=== PATIENT | male | born 1955 | race Caucasian/White ===

== ENCOUNTER 2021-05-12 07:31 | Day surgery (SDC) | payer MEDICARE, OTHER ==
[~2021-05-12 07:31] MED LIST: LACTATED RINGERS 1,000 ML IV ONE; ceFAZolin 2 GM/50 ML 2 GM/50 ML BAG IV ONE
[2021-05-12] MEDS ORDERED: MIDAZOLAM 2 MG/2 ML VIAL ONE (07:54)
[2021-05-12] MEDS ORDERED: fentaNYL 100 MCG/2 ML VIAL ONE (07:55)
[2021-05-12] MEDS ORDERED: ROCURONIUM 50 MG/5 ML VIAL ONE (07:55)
[2021-05-12] MEDS ORDERED: PROPOFOL 200 MG/20 ML VIAL IVP ONE (07:56)
[2021-05-12] MEDS ORDERED: ONDANSETRON 4 MG/2 ML VIAL ONE ×2 (08:07→09:02)
[2021-05-12] MEDS ORDERED: BUPIVACAINE 0.25% PF 30 ML VIAL ONE ×2 (08:08)
--- NOTE | 2021-05-12 08:16 | ANESTHESIA ---
Pre-Anesthesia VS, & Labs - Diagnosis Bilateral inguinal hernias, Umbilical hernia repair - Procedure Laparoscopic Inguinal hernia repair, Umbilical hernia repair Vital Signs: Temp Pulse Resp BP Pulse Ox 36.4 C L 63 16 123/80 100 05/12/21 07:54 05/12/21 07:54 05/12/21 07:54 05/12/21 07:54 05/12/21 07:54 Height: 6 ft 1 in Weight (kg): 67 kg Body Mass Index: 19.5 BMI Classification: Healthy weight - NPO >8 hours - Lab Results Lab results reviewed: Yes Home Medications and Allergies Home Medications: Ambulatory Orders No Known Home Medications 05/07/21 No Known Home Medications 05/07/21 Allergies/Adverse Reactions: Allergies Allergy/AdvReac Type Severity Reaction Status Date / Time No Known Drug Allergies Allergy Verified 05/12/21 08:02 Anes History & Medical History - Anesthetic History Anesthesia Complications: reports: No previous complications Family history of Anesthesia Complications: Denies Family history of Malignant Hyperthermia: Denies - Medical History Cardiovascular: reports: Other Pulmonary: reports: None Gastrointestinal: reports: None Urinary: reports: None Musculoskeletal: reports: Osteoarthritis, Chronic back pain Endocrine/Autoimmune: reports: None Skin: reports: Eczema Exam General: Alert, Oriented x3, Cooperative, No acute distress Dental: WNL Mouth Openin Fingerbreadth Neck Mobility: Normal Mallampati classification: I Respiratory: Lungs clear, Normal breath sounds, No respiratory distress, No accessory muscle use Cardiovascular: Regular rate, Normal S1, Normal S2, No murmurs Plan Anesthesia Type: General Consent for Procedure(s) Verified and Reviewed: Yes Code Status: Attempt Resuscitation ASA classification: 1-Healthy patient Is this case an emergency?: No
[2021-05-12] MEDS ORDERED: BUPIVACAINE 0.25% PF 10 ML VIAL ONE ×2 (08:29→09:13)
[2021-05-12] MEDS ORDERED: LIDOCAINE-MPF 2% 5 ML VIAL ONE (08:35)
[2021-05-12] MEDS ORDERED: DEXAMETHASONE 4 MG/ML VIAL ONE (09:02)
[2021-05-12] MEDS ORDERED: ACETAMINOPHEN 1,000 MG/100 ML 100 ML IV ONE (09:02)
[2021-05-12] MEDS ORDERED: ePHEDrine 50 MG/ML VIAL IVP ONE (09:09)
[2021-05-12] MEDS ORDERED: BUPIVACAINE 0.25% PF 30 ML VIAL SUBQ ONE (09:30)
[2021-05-12] MEDS ORDERED: GLYCOPYRROLATE 1 MG/5 ML VIAL ONE (10:11)
[2021-05-12] MEDS ORDERED: NEOSTIGMINE 1 MG/1 ML 10 ML MDV ONE (10:11)
[2021-05-12] MEDS ORDERED: ePHEDrine 50 MG/ML VIAL IVP PRN (10:59)
[2021-05-12] MEDS ORDERED: HYDROmorphone 0.5 MG/0.5 ML SYRINGE IVP PRN (10:59)
[2021-05-12] MEDS ORDERED: MORPHINE 2 MG/ML CARPUJECT IVP PRN (10:59)
[2021-05-12] MEDS ORDERED: NALOXONE 0.4 MG/ML VIAL IVP PRN (10:59)
[2021-05-12] MEDS ORDERED: ATROPINE ABBOJECT 1 MG/10 ML SYRINGE IVP PRN (10:59)
[2021-05-12] MEDS ORDERED: ONDANSETRON 4 MG/2 ML VIAL IVP PRN ×2 (10:59→11:09)
[2021-05-12] MEDS ORDERED: fentaNYL 100 MCG/2 ML VIAL IVP PRN (10:59)
[2021-05-12] MEDS ORDERED: METOCLOPRAMIDE 10 MG/2 ML VIAL IVP PRN (10:59)
[2021-05-12] MEDS ORDERED: LACTATED RINGERS 1,000 ML IV SCH (11:00)
[2021-05-12] MEDS ORDERED: LACTATED RINGERS 600 ML IV ONE (11:02)
[2021-05-12] MEDS ORDERED: HYDROcod/ACETAM 5/325 MG TABLET PO PRN (11:09)
--- NOTE | 2021-05-12 11:28 | OPERATIVE REPORT ---
Operative Report - General Procedure Date: 05/12/21 Planned Procedure: Laparoscopic bilateral inguinal hernia repair and open umbilical hernia repair Pre-Op Diagnosis: bih and umbilical hernia Procedure Performed: lap bih and umbilical hernia repair with mesh Post Op Diagnosis: same - Procedure Note Primary Surgeon: arron bonner Anesthesia Technique: General ET tube, Local Pathology: none Estimated Blood Loss (mL): 0 Drain/Tube Type: Other (none) Indications: painful bih and umbilical hernia Complications: none - Other Other Information/Narrative: The patient was prepped identified brought to the operating room and placed in supine position. Sequential compression devices were placed. General endotracheal anesthesia was induced. Johnson catheter was placed. He was prepped and draped in a sterile fashion and given preoperative antibiotics. Local anesthetic was given to the operative area. A 3 cm infraumbilical incision was made. A 2 and half centimeter incision was made on the fascia just right lateral of midline. The preperitoneal space was developed with digital blunt dissection. A Vega trocar was placed and secured with 3 interrupted 0 Vicryl sutures. The preperitoneal space was further developed using the scope. In midline two 5 mm trochars were placed. The right inguinal hernia was first approached. The preperitoneal space was further developed. The peritoneum was further brought down. There was no indirect inguinal hernia. The inferior epigastrics were kept along the abdominal wall. The patient had a direct inguinal hernia. The left side was then approached. Dissection proceeded in a similar fashion. A pocket was created on both sides to allow for large preformed mesh. Bard large preformed mesh was placed bilaterally and secured at the pubic tubercle along Chritsoph's ligament and anteriorly under the rectus musculature. The mesh lay in good position. CO2 was evacuated and trochars removed under vision. Fascia at the periumbilical area was closed with a total of 4 interrupted 0 Vicryl sutures. Skin was closed with a running 4-0 Monocryl subcuticular suture. The umbilical hernia was then addressed Dissection proceeded sharply. Subcutaneous tissue was mobilized away from the fascial defect by 2 to 3 cm in all directions. Umbilical skin was sharply excised away from the hernia sac or peritoneum. The peritoneum was then carefully released from the fascial defect edge with cutting current cautery. A preperitoneal space was developed for mesh placement. Polypropylene mesh was cut to size approximately 2 x 3 inches and placed preperitoneal. The mesh was secured with 9 interrupted 0 Ethibond sutures. The mesh lay in good position without tension. Subcutaneous tissue was reapproximated with interrupted 2-0 Vicryl suture. Umbilical skin was tacked back down to fascia with interrupted 2-0 Vicryl suture. Buried interrupted subdermal 3-0 Vicryl sutures were then placed. Skin was closed with a running 4-0 Monocryl subcuticular suture. Dressing was applied. The Johnson catheter was removed. The patient tolerated the procedure the procedure well was awakened and brought to recovery in good condition.
[2021-05-12] MEDS ORDERED: HYDROcod/ACETAM 5/325 MG TABLET ONE (12:12)
[2021-05-12 12:41] VITALS: BP 110/72
--- NOTE | 2021-05-12 16:15 | ANESTHESIA POST OP EVALUATION ---
Anesthesia Post Eval - Post Anesthesia Eval Vitals: Last Vital Signs Temp 36.5 C 05/12/21 12:35 Pulse 75 05/12/21 12:35 Resp 16 05/12/21 12:35 BP 110/72 05/12/21 12:35 Pulse Ox 98 05/12/21 12:35 CV Function Including HR & BP: Stable Pain Control: Satisfactory Nausea & Vomiting: Negative Mental Status: Baseline Respiratory Status: Airway Patent Hydration Status: Satisfactory Anesthesia Complications: None
== END 2021-05-12 07:32 | disposition home or self-care (01) ==
LOC: SDS 07:31
PROVIDERS: ATTEND Surgery
DX: K40.20 Bilateral inguinal hernia, without obstruction or gangrene, not specified as recurrent (principal); K42.9 Umbilical hernia without obstruction or gangrene
CPT/HCPCS: 49585; 49650; A9270; C1781; J0131; J0690; J7120

== ENCOUNTER 2021-12-14 07:39 | Outpatient (CLI) | payer MEDICARE, OTHER ==
--- NOTE | 2021-12-14 08:08 | CT Report ---
PROCEDURE: HEAD WO INDICATIONS: RIGHT OCULAR PAIN TECHNIQUE: Noncontrast 4.5 mm thick angled axial sections acquired from the foramen magnum to the vertex. For r adiation dose reduction, the following was used: automated exposure control, adjustment of mA and/or kV according to patient size. COMPARISON: None. FINDINGS: Image quality: Excellent. CSF spaces: Basal cisterns are patent. No extra-axial fluid collections. Ventricles are normal in size and shape. Brain: No midline shift. No intracranial masses or hemorrhage. Thomson-white matter interface is norm al. Skull and face: Calvarium and visualized facial bones are intact, without suspicious lesions. Sinuses: Visualized sinuses and mastoids are clear. IMPRESSION: No acute intracranial disease process. Reviewed by: Cat Aceves MD, PhD on 12/14/2021 8:07 AM PST Approved by: Cat Aceves MD, PhD on 12/14/2021 8:07 AM PST Station ID: [id number]
== END 2021-12-14 07:40 | disposition home or self-care (01) ==
LOC: DI 07:39
PROVIDERS: ATTEND Registered Nurse
DX: H57.11 Ocular pain, right eye (principal)